=== PATIENT | male | born 1985 | race Caucasian/White ===

== ENCOUNTER 2017-07-24 12:02 | Day surgery (SDC) | payer OTHER ==
[~2017-07-24] VITALS: Ht 172.7 cm; Wt 98.1 kg
[2017-07-24 13:03] VITALS: BP 126/98; PULSE 82; TEMP 97.1
[2017-07-24] MEDS ORDERED: REMICADE V100 MG/VIA IV (13:09)
[2017-07-24 15:50] VITALS: BP 119/90; PULSE 90; TEMP 97.2
[2017-07-24] MEDS ORDERED: QUESTRAN4 GM/9 GM PO (16:00)
[2017-07-24] MEDS ORDERED: BENTYL 10MG10 MG/CAP PO (16:01)
[2017-07-24 16:05] VITALS: BP 122/81; PULSE 71
[2017-07-24 16:20] VITALS: BP 111/84; PULSE 76
[2017-07-24 16:35] VITALS: BP 118/85; PULSE 85
== END 2017-07-24 16:50 | disposition home or self-care (01) ==
LOC: SDCO 12:02
DX: K50.10 Crohn's disease of large intestine without complications (principal); K64.0 First degree hemorrhoids; R10.12 Left upper quadrant pain; J45.909 Unspecified asthma, uncomplicated
CPT/HCPCS: OP; J2250; J3010; J7030